=== PATIENT | female | born 1970 | race African-American/Black ===

== ENCOUNTER 2023-11-02 02:20 | Emergency (ER) | payer BC ==
[~2023-11-02] VITALS: Ht 167.6 cm; Wt 70.3 kg
[2023-11-02] MEDS ORDERED: NAPR-1164 PO (02:41)
[2023-11-02] MEDS ORDERED: CYCL5TAB PO (02:41)
[2023-11-02] MEDS ORDERED: wellbutrin PO (02:50)
[2023-11-02] MEDS ORDERED: LAMO25TA16 PO (02:50)
[2023-11-02 02:59] LABS: *BILIRUBIN,URIN NEGATIVE (NEGATIVE); *BLOOD, URINE NEGATIVE (NEGATIVE); *CLARITY,URINE CLEAR (CLEAR); *COLOR,URINE YELLOW (YELLOW); *KETONES,URINE NEGATIVE (NEGATIVE); *PROTEIN,URINE NEGATIVE (NEGATIVE); *UROBILINOGEN,URINE 0.2 E.U./dl (NORMAL); LEUKOCYTE ESTERASE ,URINE NEGATIVE (NEGATIVE); NITRITE, URINE NEGATIVE (NEGATIVE); PH,URINE 5.5 (5.0-8.0); UGLUCOSE NEGATIVE (NEGATIVE)
[2023-11-02 03:00] LABS: BASOPHILS # (AUTO) 0.1 K/UL (0.0-0.2); BASOPHILS % (AUTO) 0.9 % (0.0-2.0); EOSINOPHILS # (AUTO) 0.1 K/uL (0.0-0.7); EOSINOPHILS % (AUTO) 1.1 % (0.0-7.0); HEMATOCRIT 39.9 % (31.2-41.9); LYMPHOCYTES # (AUTO) 1.4 K/uL (0.8-4.8); LYMPHOCYTES % (AUTO) 24.2 % (20.5-51.5); MEAN CORPUSCULAR HEMOGLOBIN 32.9 uug (24.7-32.8); MEAN CORPUSCULAR HGB CONC 35 g/dL (32.3-35.6); MEAN CORPUSCULAR VOLUME 93.7 fL (75.5-95.3); MONOCYTES # (AUTO) 0.3 K/uL (0.1-1.30); MONOCYTES % (AUTO) 5.6 % (0.0-11.0); NEUTROPHILS # (AUTO) 3.8 K/uL (1.8-8.9); NEUTROPHILS % (AUTO) 68.2 % (38.5-71.5); PLATELET COUNT (AUTO) 233 K/uL (179-408); RED BLOOD CELL COUNT(AUTO) 4.25 MIL/uL (3.63-4.92); RED CELL DISTRIBUTION WIDTH 12.3 % (12.3-17.7); WHITE BLOOD COUNT (AUTO) 5.7 K/uL (3.8-11.8)
[2023-11-02 03:01] LABS: DIFFERENTIAL COMMENT 1
[2023-11-02 03:06] LABS: CALCIUM 9.1 mg/dL (8.5-10.1); CARBON DIOXIDE 23 mmol/L (21-32); CHLORIDE 107 mmol/L (98-107); CREATININE 0.8 mg/dL (0.6-1.3); GLUCOSE 98 mg/dL (74-106); POTASSIUM 3.6 mmol/L (3.5-5.1); SODIUM SERUM 143 mmol/L (136-145); UREA NITROGEN, BLOOD 16 mg/dL (7-18)
[2023-11-02 03:09] LABS: *AMPHETAMINE, URINE NEGATIVE (NEGATIVE); *BARBITURATE, URINE NEGATIVE (NEGATIVE); *BENZODIAZEPINE, URINE NEGATIVE (NEGATIVE); *CANNABINOID, URINE NEGATIVE (NEGATIVE); *COCCAINE, URINE NEGATIVE (NEGATIVE); *OPIATE, URINE NEGATIVE (NEGATIVE); *PHENCYCLIDINE SCREEN,URINE NEGATIVE (NEGATIVE)
[2023-11-02 03:10] LABS: FENTANYL, URINE NEGATIVE (NEGATIVE)
[2023-11-02 03:11] LABS: ETHANOL 188 MG/DL (0-10)
[2023-11-02 03:12] LABS: ACETAMINOPHEN < 10.0 ug/mL (10-30); ALANINE AMINOTRANSFERASE 23 U/L (14-59); ALKALINE PHOSPHATASE 88 U/L (50-136); ASPARTATE AMINOTRANSFERASE 20 U/L (15-37); BILIRUBIN,TOTAL 0.4 mg/dL (0.2-1.0)
[2023-11-02] MEDS: IV NS 1000 ML 1,000 ML IV ONE (05:15)
[2023-11-02] MEDS ORDERED: VENL150C2 PO (09:13)
[2023-11-02] MEDS ORDERED: AMAN100T PO (09:13)
[2023-11-02] MEDS ORDERED: IBUPROFEN 800 MG TABLET ONE (09:36)
[2023-11-02] MEDS ORDERED: AMANTADINE HCL 100 MG CAPSULE ONE (09:36)
[2023-11-02] MEDS: IBUPROFEN 800 MG TABLET PO ONE (09:40)
[2023-11-02] MEDS: AMANTADINE HCL 100 MG CAPSULE PO ONE (09:45)
[2023-11-02] MEDS: VENLAFAXINE 25 MG TABLET PO ONE (09:45)
[2023-11-02] MEDS: buPROPion 100 MG TABLET PO SCH (09:46)
[2023-11-02] MEDS: LAMOTRIGINE 100 MG TABLET PO SCH (09:46)
[2023-11-02] MEDS ORDERED: VERAPAMIL SR 120 MG TABLET.SA PO ONE (09:55)
[2023-11-02 09:57] VITALS: BP 130/76
[2023-11-02] MEDS: VERAPAMIL SR 120 MG TABLET.SA PO ONE (09:57)
[2023-11-02 10:10] VITALS: O2SAT 98
== END 2023-11-02 10:30 | disposition short-term general hospital (02) ==
LOC: ER 02:30
DX: F32.A Depression, unspecified (principal); G43.909 Migraine, unspecified, not intractable, without status migrainosus; Z79.899 Other long term (current) drug therapy
CPT/HCPCS: 80053; 81003; 85025; 36415; 99285; 96360; 96361; 80299; 80320; 80307; J7040; A4606; A4663; G0480